=== PATIENT | female | born 1985 | race Caucasian/White ===

== ENCOUNTER 2017-08-02 09:11 | Emergency (ER) | payer MEDICAID ==
--- NOTE | 2017-08-02 09:37 | EDPHY ---
General Narrative: CHIEF COMPLAINT: Blood in stool HISTORY OF PRESENT ILLNESS: Patient complains of blood in her stool this morning. This was seen in the stool but not when she wiped. It was during 1 bowel movement this morning. No pain. No bright red blood in the water or stool. Described as several flecks of blood. No fever or chills. No history of anticoagulant use. No history of bleeding disorders. No abdominal pain, fevers or chills. No bleeding from any other site. No trauma or injury. No instrumentation. She does have a history of hemorrhoids in difficult bowel movements, thus she takes senna and Colace frequency for this. No other associated complaints or modifying factors. REVIEW OF SYSTEMS: Ten systems reviewed and are negative unless otherwise noted in the HPI PCP: Dr. Myles SPECIALISTS: [facility] in [place], [place] PAST MEDICAL HISTORY: Hemorrhoids. Irritable bowel syndrome, depression. Takes senna and Colace daily PAST SURGICAL HISTORY: None SOCIAL HISTORY: Nonsmoker. 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 Pulses intact distally Gastrointestinal: Abdomen is soft and nontender. No tympany. No rigidity. No guarding. 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 Normal tone. No bleeding. No fissure or hemorrhoids. No stool present in the rectal vault. Skin: Warm and dry, no rash no petechiae. No purpura. Extremities: Nontender, no pedal edema Psychiatric: Mood and affect normal DIFFERENTIAL DIAGNOSES: Including but not limited to internal hemorrhoid, external hemorrhoid, fissure, inflammatory bowel MDM: 9:25 a.m. Reports of blood in the stool x1 this morning. No abdominal pain. No fever chills. Vital signs stable. No chest pain. No bleeding from any other site. No bleeding disorders or anticoagulants. No history of inflammatory bowel. I will perform a rectal exam was inter com servicer. I will check her hemoglobin. I suspect that this is insignificant at this time that the patient will likely be able to follow up with her GI physician. 9:45 a.m. Rectal examination is unremarkable. No source of bleeding. No abnormality on the exam. On repeat examination the patient she is requesting that we check her TSH and T4 level as well. This is because she has head reportedly abnormal or borderline T4 levels. I informed her that I can't check these but that she does follow up with primary care physician on this. She is happy to do so. 10:57 a.m. TSH and T4 levels are normal. These were performed as the patient requested them. at this time she is discharged home in stable condition. Abdominal exam is benign. No bleeding. CBC is unremarkable. Chemistry unremarkable. She has an established GI physician at [facility] she will see. She will turn to the emergency department for abdominal pain, fever, increasing bleeding. She is comfortable this plan. I have answered all of her questions. - History Smoking Status: Current every day smoker - Objective Vital Signs: Initial Vital Signs Temperature (C) 98.6 F 08/02/17 09:15 Heart Rate 73 08/02/17 09:15 Respiratory Rate 17 08/02/17 09:15 Blood Pressure 142/84 H 08/02/17 09:15 O2 Sat (%) 100 08/02/17 09:15 O2 Delivery Mode Room Air Allergies/Adverse Reactions: No Known Allergies Allergy (Unverified 08/02/17 09:13) Home Medications: Medication Instructions Recorded Bupropion HCl 08/02/17 FLUoxetine 08/02/17 Laboratory Results: Laboratory Results 08/02/17 09:44 08/02/17 09:44 08/02/17 08/02/17 08/02/17 09:44 09:44 09:44 WBC 7.18 10^3/uL 10^3/uL (3.80-9.50) RBC 4.23 10^6/uL 10^6/uL (4.18-5.33) Hgb 13.5 g/dL g/dL (12.6-16.3) Hct 39.8 % % (38.0-47.0) MCV 94.1 fL fL (81.5-99.8) MCH 31.9 pg pg (27.9-34.1) MCHC 33.9 g/dL g/dL (32.4-36.7) RDW 12.4 % % (11.5-15.2) Plt Count 201 10^3/uL 10^3/uL (150-400) MPV 10.2 fL fL (8.7-11.7) Neut % (Auto) 60.8 % % (39.3-74.2) Lymph % (Auto) 30.5 % % (15.0-45.0) [place] % (Auto) 6.3 % % (4.5-13.0) Eos % (Auto) 1.4 % % (0.6-7.6) Baso % (Auto) 0.7 % % (0.3-1.7) Nucleat RBC Rel Count 0.0 % % (0.0-0.2) Absolute Neuts (auto) 4.37 10^3/uL 10^3/uL (1.70-6.50) Absolute Lymphs (auto) 2.19 10^3/uL 10^3/uL (1.00-3.00) Absolute Monos (auto) 0.45 10^3/uL 10^3/uL (0.30-0.80) Absolute Eos (auto) 0.10 10^3/uL 10^3/uL (0.03-0.40) Absolute Basos (auto) 0.05 10^3/uL 10^3/uL (0.02-0.10) Absolute Nucleated RBC 0.00 10^3/uL 10^3/uL (0-0.01) Immature Gran % 0.3 % % (0.0-1.1) Immature Gran # 0.02 10^3/uL 10^3/uL (0.00-0.10) Sodium 140 mEq/L mEq/L (134-144) Potassium 3.8 mEq/L mEq/L (3.5-5.2) Chloride 102 mEq/L mEq/L (97-110) Carbon Dioxide 24 mEq/l mEq/l (22-31) Anion Gap 14 mEq/L mEq/L (8-16) BUN 9 mg/dL mg/dL (7-23) Creatinine 0.7 mg/dL mg/dL (0.6-1.0) Estimated GFR > 60 Glucose 85 mg/dL mg/dL (70-100) Calcium 10.0 mg/dL mg/dL (8.5-10.4) TSH 2.730 uIU/mL uIU/mL (0.465-4.680) Thyroxine (T4) 7.03 ug/dL ug/dL (5.53-11.00) Beta HCG, Qual NEGATIVE Departure - Departure Disposition: Home, Routine, Self-Care Clinical Impression: Blood in stool Irritable bowel Qualifiers: Irritable bowel syndrome type: unspecified Qualified Code(s): K58.9 - Irritable bowel syndrome without diarrhea Condition: Good Instructions: Gastrointestinal Bleeding (ED), Irritable Bowel Syndrome (ED), Rectal Bleeding (ED) Additional Instructions: 1. Follow up with her established GI physician in 1-2 days 2. Contact the on-call primary care physician, was information you have if you would like to establish with them 3. ED precautions as discussed Referrals: KAREN MYLES [Other] - As per Instructions Mulugeta Singh MD [Medical Doctor] - As per Instructions
--- NOTE | 2017-08-02 09:37 | EDPHY ---
General Narrative: CHIEF COMPLAINT: Blood in stool HISTORY OF PRESENT ILLNESS: Patient complains of blood in her stool this morning. This was seen in the stool but not when she wiped. It was during 1 bowel movement this morning. No pain. No bright red blood in the water or stool. Described as several flecks of blood. No fever or chills. No history of anticoagulant use. No history of bleeding disorders. No abdominal pain, fevers or chills. No bleeding from any other site. No trauma or injury. No instrumentation. She does have a history of hemorrhoids in difficult bowel movements, thus she takes senna and Colace frequency for this. No other associated complaints or modifying factors. REVIEW OF SYSTEMS: Ten systems reviewed and are negative unless otherwise noted in the HPI PCP: Dr. Myles SPECIALISTS: [facility] in [place], [place] PAST MEDICAL HISTORY: Hemorrhoids. Irritable bowel syndrome, depression. Takes senna and Colace daily PAST SURGICAL HISTORY: None SOCIAL HISTORY: Nonsmoker. 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 Pulses intact distally Gastrointestinal: Abdomen is soft and nontender. No tympany. No rigidity. No guarding. 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 Normal tone. No bleeding. No fissure or hemorrhoids. No stool present in the rectal vault. Skin: Warm and dry, no rash no petechiae. No purpura. Extremities: Nontender, no pedal edema Psychiatric: Mood and affect normal DIFFERENTIAL DIAGNOSES: Including but not limited to internal hemorrhoid, external hemorrhoid, fissure, inflammatory bowel MDM: 9:25 a.m. Reports of blood in the stool x1 this morning. No abdominal pain. No fever chills. Vital signs stable. No chest pain. No bleeding from any other site. No bleeding disorders or anticoagulants. No history of inflammatory bowel. I will perform a rectal exam was petroleum refinery laborer. I will check her hemoglobin. I suspect that this is insignificant at this time that the patient will likely be able to follow up with her GI physician. 9:45 a.m. Rectal examination is unremarkable. No source of bleeding. No abnormality on the exam. On repeat examination the patient she is requesting that we check her TSH and T4 level as well. This is because she has head reportedly abnormal or borderline T4 levels. I informed her that I can't check these but that she does follow up with primary care physician on this. She is happy to do so. 10:57 a.m. TSH and T4 levels are normal. These were performed as the patient requested them. at this time she is discharged home in stable condition. Abdominal exam is benign. No bleeding. CBC is unremarkable. Chemistry unremarkable. She has an established GI physician at [facility] she will see. She will turn to the emergency department for abdominal pain, fever, increasing bleeding. She is comfortable this plan. I have answered all of her questions. - History Smoking Status: Current every day smoker - Objective Vital Signs: Initial Vital Signs Temperature (C) 98.6 F 08/02/17 09:15 Heart Rate 73 08/02/17 09:15 Respiratory Rate 17 08/02/17 09:15 Blood Pressure 142/84 H 08/02/17 09:15 O2 Sat (%) 100 08/02/17 09:15 O2 Delivery Mode Room Air Allergies/Adverse Reactions: No Known Allergies Allergy (Unverified 08/02/17 09:13) Home Medications: Medication Instructions Recorded Bupropion HCl 08/02/17 FLUoxetine 08/02/17 Laboratory Results: Laboratory Results 08/02/17 09:44 08/02/17 09:44 08/02/17 08/02/17 08/02/17 09:44 09:44 09:44 WBC 7.18 10^3/uL 10^3/uL (3.80-9.50) RBC 4.23 10^6/uL 10^6/uL (4.18-5.33) Hgb 13.5 g/dL g/dL (12.6-16.3) Hct 39.8 % % (38.0-47.0) MCV 94.1 fL fL (81.5-99.8) MCH 31.9 pg pg (27.9-34.1) MCHC 33.9 g/dL g/dL (32.4-36.7) RDW 12.4 % % (11.5-15.2) Plt Count 201 10^3/uL 10^3/uL (150-400) MPV 10.2 fL fL (8.7-11.7) Neut % (Auto) 60.8 % % (39.3-74.2) Lymph % (Auto) 30.5 % % (15.0-45.0) [place] % (Auto) 6.3 % % (4.5-13.0) Eos % (Auto) 1.4 % % (0.6-7.6) Baso % (Auto) 0.7 % % (0.3-1.7) Nucleat RBC Rel Count 0.0 % % (0.0-0.2) Absolute Neuts (auto) 4.37 10^3/uL 10^3/uL (1.70-6.50) Absolute Lymphs (auto) 2.19 10^3/uL 10^3/uL (1.00-3.00) Absolute Monos (auto) 0.45 10^3/uL 10^3/uL (0.30-0.80) Absolute Eos (auto) 0.10 10^3/uL 10^3/uL (0.03-0.40) Absolute Basos (auto) 0.05 10^3/uL 10^3/uL (0.02-0.10) Absolute Nucleated RBC 0.00 10^3/uL 10^3/uL (0-0.01) Immature Gran % 0.3 % % (0.0-1.1) Immature Gran # 0.02 10^3/uL 10^3/uL (0.00-0.10) Sodium 140 mEq/L mEq/L (134-144) Potassium 3.8 mEq/L mEq/L (3.5-5.2) Chloride 102 mEq/L mEq/L (97-110) Carbon Dioxide 24 mEq/l mEq/l (22-31) Anion Gap 14 mEq/L mEq/L (8-16) BUN 9 mg/dL mg/dL (7-23) Creatinine 0.7 mg/dL mg/dL (0.6-1.0) Estimated GFR > 60 Glucose 85 mg/dL mg/dL (70-100) Calcium 10.0 mg/dL mg/dL (8.5-10.4) TSH 2.730 uIU/mL uIU/mL (0.465-4.680) Thyroxine (T4) 7.03 ug/dL ug/dL (5.53-11.00) Beta HCG, Qual NEGATIVE Departure - Departure Disposition: Home, Routine, Self-Care Clinical Impression: Blood in stool Irritable bowel Qualifiers: Irritable bowel syndrome type: unspecified Qualified Code(s): K58.9 - Irritable bowel syndrome without diarrhea Condition: Good Instructions: Gastrointestinal Bleeding (ED), Irritable Bowel Syndrome (ED), Rectal Bleeding (ED) Additional Instructions: 1. Follow up with her established GI physician in 1-2 days 2. Contact the on-call primary care physician, was information you have if you would like to establish with them 3. ED precautions as discussed Referrals: KAREN MYLES [Other] - As per Instructions Mulugeta Singh MD [Medical Doctor] - As per Instructions
--- NOTE | 2017-08-02 09:37 | EDPHY ---
General Narrative: CHIEF COMPLAINT: Blood in stool HISTORY OF PRESENT ILLNESS: Patient complains of blood in her stool this morning. This was seen in the stool but not when she wiped. It was during 1 bowel movement this morning. No pain. No bright red blood in the water or stool. Described as several flecks of blood. No fever or chills. No history of anticoagulant use. No history of bleeding disorders. No abdominal pain, fevers or chills. No bleeding from any other site. No trauma or injury. No instrumentation. She does have a history of hemorrhoids in difficult bowel movements, thus she takes senna and Colace frequency for this. No other associated complaints or modifying factors. REVIEW OF SYSTEMS: Ten systems reviewed and are negative unless otherwise noted in the HPI PCP: Dr. Myles SPECIALISTS: [facility] in [place], [place] PAST MEDICAL HISTORY: Hemorrhoids. Irritable bowel syndrome, depression. Takes senna and Colace daily PAST SURGICAL HISTORY: None SOCIAL HISTORY: Nonsmoker. 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 Pulses intact distally Gastrointestinal: Abdomen is soft and nontender. No tympany. No rigidity. No guarding. 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 Normal tone. No bleeding. No fissure or hemorrhoids. No stool present in the rectal vault. Skin: Warm and dry, no rash no petechiae. No purpura. Extremities: Nontender, no pedal edema Psychiatric: Mood and affect normal DIFFERENTIAL DIAGNOSES: Including but not limited to internal hemorrhoid, external hemorrhoid, fissure, inflammatory bowel MDM: 9:25 a.m. Reports of blood in the stool x1 this morning. No abdominal pain. No fever chills. Vital signs stable. No chest pain. No bleeding from any other site. No bleeding disorders or anticoagulants. No history of inflammatory bowel. I will perform a rectal exam was master mechanic. I will check her hemoglobin. I suspect that this is insignificant at this time that the patient will likely be able to follow up with her GI physician. 9:45 a.m. Rectal examination is unremarkable. No source of bleeding. No abnormality on the exam. On repeat examination the patient she is requesting that we check her TSH and T4 level as well. This is because she has head reportedly abnormal or borderline T4 levels. I informed her that I can't check these but that she does follow up with primary care physician on this. She is happy to do so. 10:57 a.m. TSH and T4 levels are normal. These were performed as the patient requested them. at this time she is discharged home in stable condition. Abdominal exam is benign. No bleeding. CBC is unremarkable. Chemistry unremarkable. She has an established GI physician at [facility] she will see. She will turn to the emergency department for abdominal pain, fever, increasing bleeding. She is comfortable this plan. I have answered all of her questions. - History Smoking Status: Current every day smoker - Objective Vital Signs: Initial Vital Signs Temperature (C) 98.6 F 08/02/17 09:15 Heart Rate 73 08/02/17 09:15 Respiratory Rate 17 08/02/17 09:15 Blood Pressure 142/84 H 08/02/17 09:15 O2 Sat (%) 100 08/02/17 09:15 O2 Delivery Mode Room Air Allergies/Adverse Reactions: No Known Allergies Allergy (Unverified 08/02/17 09:13) Home Medications: Medication Instructions Recorded Bupropion HCl 08/02/17 FLUoxetine 08/02/17 Laboratory Results: Laboratory Results 08/02/17 09:44 08/02/17 09:44 08/02/17 08/02/17 08/02/17 09:44 09:44 09:44 WBC 7.18 10^3/uL 10^3/uL (3.80-9.50) RBC 4.23 10^6/uL 10^6/uL (4.18-5.33) Hgb 13.5 g/dL g/dL (12.6-16.3) Hct 39.8 % % (38.0-47.0) MCV 94.1 fL fL (81.5-99.8) MCH 31.9 pg pg (27.9-34.1) MCHC 33.9 g/dL g/dL (32.4-36.7) RDW 12.4 % % (11.5-15.2) Plt Count 201 10^3/uL 10^3/uL (150-400) MPV 10.2 fL fL (8.7-11.7) Neut % (Auto) 60.8 % % (39.3-74.2) Lymph % (Auto) 30.5 % % (15.0-45.0) [place] % (Auto) 6.3 % % (4.5-13.0) Eos % (Auto) 1.4 % % (0.6-7.6) Baso % (Auto) 0.7 % % (0.3-1.7) Nucleat RBC Rel Count 0.0 % % (0.0-0.2) Absolute Neuts (auto) 4.37 10^3/uL 10^3/uL (1.70-6.50) Absolute Lymphs (auto) 2.19 10^3/uL 10^3/uL (1.00-3.00) Absolute Monos (auto) 0.45 10^3/uL 10^3/uL (0.30-0.80) Absolute Eos (auto) 0.10 10^3/uL 10^3/uL (0.03-0.40) Absolute Basos (auto) 0.05 10^3/uL 10^3/uL (0.02-0.10) Absolute Nucleated RBC 0.00 10^3/uL 10^3/uL (0-0.01) Immature Gran % 0.3 % % (0.0-1.1) Immature Gran # 0.02 10^3/uL 10^3/uL (0.00-0.10) Sodium 140 mEq/L mEq/L (134-144) Potassium 3.8 mEq/L mEq/L (3.5-5.2) Chloride 102 mEq/L mEq/L (97-110) Carbon Dioxide 24 mEq/l mEq/l (22-31) Anion Gap 14 mEq/L mEq/L (8-16) BUN 9 mg/dL mg/dL (7-23) Creatinine 0.7 mg/dL mg/dL (0.6-1.0) Estimated GFR > 60 Glucose 85 mg/dL mg/dL (70-100) Calcium 10.0 mg/dL mg/dL (8.5-10.4) TSH 2.730 uIU/mL uIU/mL (0.465-4.680) Thyroxine (T4) 7.03 ug/dL ug/dL (5.53-11.00) Beta HCG, Qual NEGATIVE Departure - Departure Disposition: Home, Routine, Self-Care Clinical Impression: Blood in stool Irritable bowel Qualifiers: Irritable bowel syndrome type: unspecified Qualified Code(s): K58.9 - Irritable bowel syndrome without diarrhea Condition: Good Instructions: Gastrointestinal Bleeding (ED), Irritable Bowel Syndrome (ED), Rectal Bleeding (ED) Additional Instructions: 1. Follow up with her established GI physician in 1-2 days 2. Contact the on-call primary care physician, was information you have if you would like to establish with them 3. ED precautions as discussed Referrals: KAREN MYLES [Other] - As per Instructions Mulugeta Singh MD [Medical Doctor] - As per Instructions
[2017-08-02 09:54] LABS: PLATELET COUNT 201 10^3/uL (150-400)
[2017-08-02 11:20] VITALS: BP 133/78; PULSE 72; RESP 16; TEMP 98.2; O2SAT 97
== END 2017-08-02 11:21 | disposition home or self-care (01) ==
DX: K92.1 Melena (principal); K58.9 Irritable bowel syndrome, unspecified; F17.200 Nicotine dependence, unspecified, uncomplicated